=== PATIENT | male | born 1995 | race Caucasian/White ===

== ENCOUNTER 2019-02-21 01:15 | Emergency (ER) | payer SELFPAY ==
[~2019-02-21] VITALS: Ht 182.8 cm; Wt 54.4 kg
[~2019-02-21 01:15] MED LIST: ATARAX25 MG PO; BACTRIM DS 8001 TA1 PO; CIPRO500 MG PO; CLARITIN10 MG PO; HYDROCODONE BIT1 T11 PO; KEFLEX500 MG PO; MEDROL DOSEPAK4 MG PO; NAPROSYN500 MG PO; PREDNICOT10 MG PO; TYLENOL W/CODEI1 TA2 PO; ZITHROMAX Z PA250 MG PO
== END 2019-02-21 03:15 | disposition home or self-care (01) ==
LOC: ED 01:15
DX: S52.502A Unspecified fracture of the lower end of left radius, initial encounter for closed fracture (principal); S00.211A Abrasion of right eyelid and periocular area, initial encounter; S80.211A Abrasion, right knee, initial encounter; Z88.1 Allergy status to other antibiotic agents; V89.2XXA Person injured in unspecified motor-vehicle accident, traffic, initial encounter; Y93.89 Activity, other specified; Y92.488 Other paved roadways as the place of occurrence of the external cause; Y99.8 Other external cause status

== ENCOUNTER 2023-04-29 02:12 | Inpatient (IN) | payer SELFPAY ==
[~2023-04-29] VITALS: Ht 180.3 cm; Wt 71.8 kg
[2023-04-29] VITALS (8 sets, daily range): BP systolic 90–129; BP diastolic 44–83
[~2023-04-29 02:12] MED LIST changes: +CEPHALEXIN500 M1 PO
[2023-04-29 02:36] LABS: BASO # 0.1 10*3/uL (0.0-0.1); BASO % 1.1 % (0.0-1.0); EOS % 0.4 % (1.0-4.0); HEMATOCRIT 43.9 % (42.0-52.0); LYMPH # 1.7 10*3/uL (1.3-4.4); LYMPH % 20.4 % (27.0-41.0); MEAN CELL VOLUME 94.6 fl (80.0-94.0); MEAN CORPUSCULAR HGB 31.5 pg (27.0-31.0); MEAN CORPUSCULAR HGB CONC 33.3 g/dl (33.0-37.0); MEAN PLATELET VOLUME 9.4 fl (9.6-12.3); MONO # 0.5 10*3/uL (0.1-1.0); MONO % 6.6 % (3.0-9.0); NEUT # 5.8 10*3/uL (2.3-7.9); NEUT % 70.8 % (47.0-73.0); PLATELET COUNT AUTOMATED 299 10*3/uL (130-400); RED BLOOD COUNT 4.64 10*6/uL (4.50-5.90); RED CELL DISTRI WIDTH 13.4 % (0-14.5); WHITE BLOOD COUNT 8.2 10*3/uL (4.8-10.8)
[2023-04-29 03:02] LABS: CPK 64 U/L (34-171)
[2023-04-29 03:03] LABS: ALKALINE PHOSPHATASE 72 U/L (46-116); BUN 10 mg/dl (9-23); CHLORIDE 102 mmol/L (98-107); LIPASE 43 U/L (12-53); POTASSIUM 4.5 mmol/L (3.4-5.1); SGPT/ALT 38 U/L (10-49); TOTAL PROTEIN 7.1 gm/dL (6.0-8.0)
[2023-04-29 03:22] LABS: ACT PARTIAL THROMBO TIME 23.7 SECONDS (20.0-32.1)
[2023-04-29 03:30] LABS: FREE T4 1.2 ng/dl (0.89-1.76)
== END 2023-04-29 16:55 | disposition home or self-care (01) | DRG 918 ==
LOC: ED 02:12 → EDHOLD 03:26 → 5E 16:34
PROVIDERS: Emergency Medicine; ADMIT Internal Medicine; ATTEND Internal Medicine
DX: T40.2X1A Poisoning by other opioids, accidental (unintentional), initial encounter (principal); E87.20 Acidosis, unspecified; R73.9 Hyperglycemia, unspecified; F14.10 Cocaine abuse, uncomplicated; I48.91 Unspecified atrial fibrillation; F17.210 Nicotine dependence, cigarettes, uncomplicated; R74.01 Elevation of levels of liver transaminase levels; Y92.89 Other specified places as the place of occurrence of the external cause